=== PATIENT | male | born 1985 | race Caucasian/White ===

== ENCOUNTER 2019-12-03 10:14 | Emergency (ER) | payer MEDICAID ==
[~2019-12-03] VITALS: Ht 167.6 cm; Wt 102.1 kg
[2019-12-03 10:49] VITALS: Ht 167.6 cm; Wt 102.1 kg
[2019-12-03 12:20] VITALS: BP 151/96
== END 2019-12-03 12:20 | disposition home or self-care (01) ==
LOC: ED 10:14
DX: M25.461 Effusion, right knee (principal); I10 Essential (primary) hypertension
CPT/HCPCS: J1885

== ENCOUNTER 2020-01-28 11:26 | Emergency (ER) | payer OTHER ==
[~2020-01-28] VITALS: Ht 167.6 cm; Wt 99.3 kg
[2020-01-28 11:32] VITALS: Ht 167.6 cm; Wt 99.3 kg
[2020-01-28 14:47] VITALS: BP 140/92
== END 2020-01-28 14:47 | disposition home or self-care (01) ==
LOC: ED 11:26
DX: S86.912A Strain of unspecified muscle(s) and tendon(s) at lower leg level, left leg, initial encounter (principal); I10 Essential (primary) hypertension; M10.9 Gout, unspecified; W22.8XXA Striking against or struck by other objects, initial encounter; Y93.89 Activity, other specified; Y92.89 Other specified places as the place of occurrence of the external cause; Y99.8 Other external cause status